=== PATIENT | female | born 1950 | race Caucasian/White ===

== ENCOUNTER 2018-01-05 06:25 | Day surgery (SDC) | payer BC ==
[~2018-01-05 06:25] MED LIST: Buffered Lidocaine 0.9% SYRIN* 5 ML/SYR SYRINGE INTRADERM ONE
[2018-01-05] MEDS ORDERED: ceFAZolin 2 GM PREMIX (*) 0 GM/0 ML BAG IVPB ONE (06:31)
[2018-01-05] MEDS ORDERED: ceFAZolin 2 GM PREMIX (*) 2 GM/50 ML BAG IVPB ONE (06:47)
[2018-01-05] MEDS ORDERED: Bupivacaine 0.5% SDV PF* 30ML VIAL ONE (07:23)
[2018-01-05] MEDS ORDERED: Lidocaine 1% INJ* 10 MG/ML 30 ML SDV ONE (07:23)
[2018-01-05] MEDS ORDERED: Midazolam* 1 MG/ML 5 ML VIAL (5 MG) ONE (07:23)
[2018-01-05] MEDS ORDERED: Dexamethasone IV* 4 MG/ML 1 ML (4 MG) ONE ×3 (07:23→08:27)
[2018-01-05] MEDS ORDERED: fentaNYL* 50 MCG/ML 2 ML VIAL (100 MCG VIAL) ONE (07:33)
[2018-01-05] MEDS ORDERED: Propofol* 10 MG/ML 20 ML BTL IV PUSH ONE (07:35)
[2018-01-05] MEDS ORDERED: Buffered Lidocaine 0.9% SYRIN* 5 ML/SYR SYRINGE ONE (08:30)
[2018-01-05 08:54] VITALS: BP 111/73
[2018-01-05] MEDS ORDERED: Ondansetron ODT TAB* 4 MG PO PRN (09:03)
[2018-01-05] MEDS ORDERED: oxyCODONE TAB* 5 MG TAB PO PRN (09:03)
[2018-01-05] MEDS ORDERED: HYDROcodone/ACETAMIN 5-325 MG* 1 TAB PO PRN (09:03)
[2018-01-05] MEDS ORDERED: Ondansetron INJ* 2 MG/ML VIAL IV PRN (09:03)
[2018-01-05] MEDS ORDERED: Naloxone* 0.4 MG/ML 1 ML VIAL IV PRN (09:03)
[2018-01-05] MEDS ORDERED: fentaNYL* 50 MCG/ML 2 ML VIAL (100 MCG VIAL) IV PRN (09:03)
--- NOTE | 2018-01-05 12:48 | OP ---
DATE OF OPERATION: 01/05/18 - [facility] DATE OF : 54 SURGEON: Rayo Dorna DPM SUPERVISOR DETASSELING CREW: None. ANESTHESIA: MAC with local. PRE-OP DIAGNOSIS: Painful bunion deformity with hallux limitus right foot. POST-OP DIAGNOSIS: Painful bunion deformity with hallux limitus right foot. OPERATIVE PROCEDURE: Bunionectomy with first metatarsal osteotomy and phalangeal osteotomy in the right foot. PATHOLOGY: Degenerative bone. HEMOSTASIS: Pneumatic ankle tourniquet. ESTIMATED BLOOD LOSS: Less than 10 cc. MATERIALS: Two of the 3.0 mm cannulated Salisbury screws. INDICATIONS: The patient with chronic right foot forefoot pain and deformity about the right great toe bunion deformity, hypertrophic bone medially and dorsally, decreased and painful range of motion. The patient has pain when walking and wearing shoes and opts for surgery at this time to attempt to decrease pain and improve function and improve her ability to wear shoes and walk and exercise with less pain. DESCRIPTION OF PROCEDURE: The patient was brought to the operating room and placed on operating table in supine position. The anesthesia department administered IV sedation and peripheral nerves blocks were performed about the right foot with a 1:1 mixture of 1% lidocaine plain and 0.5% Marcaine plain. The right foot was then prepped and draped in the usual fashion. The right foot was then exsanguinated with an Esmarch bandage and the pneumatic ankle tourniquet was inflated to 250 mmHg about a well-padded right ankle. Attention was directed to the dorsal medial aspect of the right great toe joint where a curvilinear incision was made. Incision was deepened through the subcutaneous tissue with care being taken to retract neurovascular structures and cauterize superficial bleeders as needed. Dissection was carried down to the capsule and periosteum were inverted. L capsular incision was made to allow for exposure of the joint. There was noted to be hypertrophic bone at the medial aspect of the first metatarsal head. There were noted to be adhesions with the sesamoid apparatus which had to be freed with a McGlamry elevator. Next, dissection was carried into the first intermetatarsal space where traditional lateral release was performed including release of the extensor hallucis brevis tendon. This allowed for relaxation of lateral contractures. Next, using a sagittal saw the medial eminence was resected in a manner to preserve the sagittal groove. Next, a Chevron-type first metatarsal osteotomy was performed on first metatarsal head with apex just dorsal and proximal to the geometric center. The plantar wing was cut from medial to lateral in the plantar direction to allow for some plantar flexion of the capital fragment. Dorsal wing was also cut in a similar manner and a small medially based wedge of bone was resected dorsally to correct for some PASA. Capital fragment was transposed lateral to the corrected position. Temporary fixation was achieved with a wire from the screw set. Position was assessed with C-arm and using standard technique, a 3.0 mm cannulated Salisbury screw was placed across the osteotomy site using standard technique. The temporary fixation was removed. The fixation was inspected with a C-arm and screw was found to be 2 fingers tight and the osteotomy was solid with no detectable motion or gapping. Care was taken to ensure the tip of the screw did not penetrate into the joint. The redundant medial shaft of the bone was resected off the first metatarsal and a power scottie was used to smooth rough edges. The surgical site was flushed with copious amounts of normal sterile saline. There was still some hallux interphalangeus. Dissection was carried further distal medially reflecting the periosteum and an angular phalangeal osteotomy was performed from distal medial to more proximal lateral, the medial wedge of bone resected and proximal lateral hinge maintained. The osteotomy was reduced and attempted fixation with the wire and the position was assessed with a C-arm and a 3.0 Dylon screw was placed across the osteotomy site. Temporary fixation was removed. The osteotomy was found to be solid with no detectable motion or gapping. The screw was 2 fingers tight. The correction and fixation was again assessed with the C-arm. Medial capsulorrhaphy was performed resecting redundant medial capsule. The surgical site was flushed with copious amounts of normal sterile saline and the periosteal and capsular tissues were reapproximated and secured with 2-0 Vicryl. Subcutaneous tissues were closed with 4-0 Vicryl and the skin was reapproximated and secured with 5-0 nylon. A 12 mg of dexamethasone phosphate in total was infiltrated about the surgical site and the incision was dressed with Xeroform gauze and a light compressive dressing was performed with 4x4 gauze, Maicol and a light Coban wrap. Pneumatic ankle tourniquet was deflated about the right ankle and a prompt hyperemic response was noted about all 5 digits of the patient's right foot. Having appeared to have tolerated the procedures and anesthesia well, the patient was transferred from the operative room to Recovery in satisfactory condition with capillary refill less than 3 seconds to all digits of the right foot. [id number]/[facility] #: [id number] MTDD
--- NOTE | 2018-01-06 14:50 | RAD ---
INDICATION: Right foot. No other history is provided. COMPARISONS: None relevant TECHNIQUE: Fluoroscopy was provided for a surgical procedure. Total fluoroscopy time is: 24 seconds FINDINGS: Spot images of the straight post surgical change to the first metatarsal and proximal phalanx IMPRESSION: FLUOROSCOPY WAS PROVIDED FOR A SURGICAL PROCEDURE CPT II Codes: G9500
== END 2018-01-05 09:21 | disposition home or self-care (01) ==
LOC: OREAST 06:25
PROVIDERS: ATTEND Podiatrist Foot Surgery
DX: M21.611 Bunion of right foot (principal); M20.5X1 Other deformities of toe(s) (acquired), right foot; J45.990 Exercise induced bronchospasm; G47.00 Insomnia, unspecified
CPT/HCPCS: 76000; 88304; 88311; C1713; C1776; J0690; J1100; J2250; J2704; J3010